=== PATIENT | male | born 1985 ===

== ENCOUNTER 2018-08-09 17:32 | Emergency (ER) | payer MEDICAID ==
[~2018-08-09] VITALS: Ht 180.3 cm; Wt 74.5 kg
[2018-08-09 17:44] VITALS: BP 114/76
== END 2018-08-09 21:06 | disposition left against medical advice (07) ==
LOC: ER 17:33
DX: L29.9 Pruritus, unspecified (principal); Z53.21 Procedure and treatment not carried out due to patient leaving prior to being seen by health care provider